=== PATIENT | male | born 1995 | race American Indian/Alaskan Native ===

== ENCOUNTER 2016-09-05 14:07 | Emergency (ER) | payer SELFPAY ==
[~2016-09-05] VITALS: Ht 180.3 cm; Wt 96.5 kg
[2016-09-05] MEDS ORDERED: GLUCAGON 1 MG ONE ×2 (15:47→16:03)
[2016-09-05] MEDS ORDERED: GLUCAGON 1 MG IM ONE (16:00)
[2016-09-05] MEDS ORDERED: SODIUM CHLORIDE 0.9% 1,000 ML IV ONE (16:19)
[2016-09-05] MEDS ORDERED: LORazepam 2 MG/ML, 1ML IVPush ONE (16:30)
[2016-09-05] MEDS ORDERED: SODIUM CHLORIDE FLUSH 10ML SYR IVF ONE (16:30)
[2016-09-05] MEDS ORDERED: LORazepam 2 MG/ML, 1ML ONE (16:58)
[2016-09-05] MEDS ORDERED: MIDAZOLAM 1 MG/ML, 5ML ONE (17:16)
[2016-09-05] MEDS ORDERED: FENTANYL PF 100 MCG/2ML ONE (17:16)
[2016-09-05] MEDS ORDERED: PROPOFOL 0 ML IV ONE (17:29)
[2016-09-05] MEDS ORDERED: PROPOFOL 10 MG/ML, 20ML ONE (17:30)
[2016-09-05] MEDS: FENTANYL PF 100 MCG/2ML IV ONE ×2 (18:07→18:09)
[2016-09-05] MEDS ORDERED: MIDAZOLAM 1 MG/ML, 2ML IVPush ONE (18:30)
[2016-09-05 19:07] VITALS: BP 111/62
== END 2016-09-05 19:10 | disposition home or self-care (01) ==
LOC: ED 15:08
DX: T18.128A Food in esophagus causing other injury, initial encounter (principal); X58.XXXA Exposure to other specified factors, initial encounter; Y93.89 Activity, other specified; Y99.8 Other external cause status; Y92.89 Other specified places as the place of occurrence of the external cause
CPT/HCPCS: 43247; 96361; 96372; 96374; 99285; J1610; J2060; J2250; J3010; J7030; 88305